=== PATIENT | male | born 1990 | race Asian ===

== ENCOUNTER 2020-04-08 21:08 | Inpatient (IN) | payer SELFPAY, OTHER ==
[~2020-04-08] VITALS: Ht 175.3 cm; Wt 192.3 kg
[~2020-04-08 21:08] MED LIST: NO MEDICATIONS
[2020-04-08] MEDS ORDERED: acetaminophen 325mg tablet PO ONE (21:30)
[2020-04-08] MEDS ORDERED: ondansetron/PF 4mg/2ml inj IV ONE (21:35)
[2020-04-08 21:39] LABS: BASOPHILS # (AUTO) 0.1 X10'3 (0-0.2); BASOPHILS % (AUTO) 0.3 % (0-1); EOSINOPHILS % (AUTO) 0.2 % (0-6); HEMATOCRIT 47.5 % (42.0-52.0); LYMPHOCYTES # (AUTO) 0.9 X10'3 (1.1-4.8); LYMPHOCYTES % (AUTO) 4.1 % (21-51); MEAN CORPUSCULAR HEMOGLOBIN 28.2 PG (27.0-31.0); MEAN CORPUSCULAR HGB CONC 33.6 g/dL (33.0-36.5); MEAN CORPUSCULAR VOLUME 83.9 FL (78-98); MEAN PLATELET VOLUME 8.2 FL (7.4-10.4); MONOCYTES # (AUTO) 1.2 X10'3 (0-0.9); MONOCYTES % (AUTO) 5.7 % (2-12); NEUTROPHILS # (AUTO) 19.3 X10'3 (1.8-7.7); NEUTROPHILS % (AUTO) 89.7 % (42-75); PLATELET COUNT 221 X10'3 (140-440); RED BLOOD COUNT 5.66 X10'6 (4.70-6.10); RED CELL DISTRIBUTION WIDTH 14.5 % (11.5-14.5); WHITE BLOOD COUNT 21.5 X10'3 (4.5-11.0)
[2020-04-08 22:01] LABS: ALANINE AMINOTRANSFERASE 154 U/L (12-78); ALKALINE PHOSPHATASE 81 IU/L (46-116); ANION GAP 12 (8-16); ASPARTATE AMINO TRANSFERASE 65 U/L (10-37); BILIRUBIN,TOTAL 0.9 MG/DL (0.1-1.0); BLOOD UREA NITROGEN 8 MG/DL (7-18); CALCIUM 9.3 MG/DL (8.5-10.1); CHLORIDE 97 MMOL/L (99-107); CREATININE 1.15 MG/DL (0.60-1.10); GLUCOSE 115 MG/DL (70-104); POTASSIUM 3.2 MMOL/L (3.5-5.1); SODIUM 132 MMOL/L (135-145); TOTAL CARBON DIOXIDE 23.5 MMOL/L (24-32); TOTAL PROTEIN 8.2 G/DL (6.4-8.2); eGFR 75 ML/MIN
[2020-04-08] MEDS ORDERED: normal saline 1000ml 1,000 ML IV ONE ×2 (22:40→22:50)
[2020-04-08] MEDS ORDERED: proCHLORperazine 10 MG/2 ml inj IV ONE (22:50)
[2020-04-08] MEDS ORDERED: CefTRIAXone 2gm/D5W 50ml BAG 50 ML IV ONE (22:55)
[2020-04-08 23:02] LABS: CLARITY,URINE CLEAR (Clear); COLOR,URINE YELLOW (Yellow); GLUCOSE, URINE NEGATIVE (Neg); KETONES,URINE NEGATIVE (Neg); LEUKOCYTE ESTERASE ,URINE NEGATIVE (Neg); NITRITES, URINE NEGATIVE (Neg); OCCULT BLOOD,URINE MODERATE (Neg); PROTEIN,URINE NEGATIVE (Neg); UROBILINOGEN,URINE 0.2 E.U/dL (0.2-1.0)
[2020-04-08 23:11] LABS: UA COLLECTION TYPE CLN CATCH MIDSTREAM
[2020-04-08 23:12] LABS: BACTERIA,URINE NONE SEEN /HPF (Neg); RBC,URINE 0-2 /HPF (0-2); SQUAMOUS EPITHELIAL CELL,UR FEW /LPF (FEW); WBC,URINE NONE SEEN /HPF (0-4)
[2020-04-09] MEDS ORDERED: iohexol 300mg/ml 100ml inj. ONE (00:09)
[2020-04-09] MEDS ORDERED: iohexol 300 MG/1 ML 50ml polymer ONE (00:09)
[2020-04-09] MEDS ORDERED: ketorolac tromethamine 15mg/ml inj. IV ONE (01:00)
[2020-04-09] MEDS: VANCOMYCIN IV SCH ×2 (01:03→02:42)
[2020-04-09] MEDS: SODIUM CHLORIDE IV SCH ×2 (01:03→02:42)
[2020-04-09] MEDS ORDERED: potassium Cl 20 mEq SR tablet PO STA (01:11)
[2020-04-09 01:43] LABS: MAGNESIUM 1.4 MG/DL (1.5-2.4)
[2020-04-09 01:44] LABS: URINE AMPHETAMINE SCREEN NEGATIVE (Neg); URINE BARBITUATE SCREEN NEGATIVE (Neg); URINE BENZODIAZEPINES SCREEN NEGATIVE (Neg); URINE CANNABINOID SCREEN NEGATIVE (Neg); URINE COCAINE SCREEN NEGATIVE (Neg); URINE METHADONE SCREEN NEGATIVE (Neg); URINE OPIATE SCREEN NEGATIVE (Neg); URINE PHENCYCLIDINE SCREEN NEGATIVE (Neg)
[2020-04-09] MEDS ORDERED: magnesium 2GM in 50ml NS 50 ML IV ONE (01:50)
[2020-04-09] MEDS ORDERED: normal saline 1000ml 1,000 ML IV ONE (01:55)
[2020-04-09] MEDS ORDERED: acetaminophen 325mg tablet PO PRN (02:05)
[2020-04-09] MEDS ORDERED: potassium CL 10mEq/100ml bag 100 ML IV PRN ×2 (02:05)
[2020-04-09] MEDS ORDERED: magnesium 2GM in 50ml NS 50 ML IV PRN (02:05)
[2020-04-09] MEDS ORDERED: mag hydrox/Alum hydrox/simeth 30ml oral suspension PO PRN (02:05)
[2020-04-09] MEDS ORDERED: potassium Cl 20 mEq SR tablet PO PRN (02:05)
[2020-04-09] MEDS ORDERED: magnesium 4gm in 100ml NS 100 ML IV PRN (02:05)
[2020-04-09] MEDS ORDERED: magnesium hydroxide 30ml (MOM) UD suspension PO PRN (02:05)
[2020-04-09] MEDS ORDERED: ondansetron/PF 4mg/2ml inj IV PRN (02:05)
[2020-04-09 04:30] VITALS: BP 116/85
--- NOTE | 2020-04-09 04:30 | NUR ---
RECEIVED PATIENT IN STABLE CONDITION WITH ALL BELONGINGS FROM ER INTO ROOM 4016 AND ASSUMED PATIENT CARE.
--- NOTE | 2020-04-09 05:12 | NUR ---
PAGER ID: [phone] MESSAGE: Moni [id number] Robles [phone]. did you want iv antibiotics ordered? also can he get Tylenol for headache. thank you.
--- NOTE | 2020-04-09 06:10 | NUR ---
received report from kendra day
--- NOTE | 2020-04-09 06:14 | NUR ---
REPORT GIVEN TO ANGEL CHRISTINE
[2020-04-09] MEDS: magnesium Cl slow-release 64mg tablet PO PRN ×2 (07:11→11:34)
[2020-04-09] MEDS: potassium Cl 20 mEq SR tablet PO PRN ×3 (07:12→17:16)
[2020-04-09] MEDS: acetaminophen 325mg tablet PO PRN ×2 (07:12→23:04)
[2020-04-09] MEDS: CefTRIAXone/D5W-Rocephin 1gm 50 ML IV SCH (07:13)
[2020-04-09] MEDS: normal saline 1000ml 1,000 ML IV SCH ×3 (07:19→23:05)
[2020-04-09] MEDS: K and/or MAG REPLACEMENT MC SCH ×2 (07:20→19:03)
[2020-04-09] MEDS ORDERED: clindamycin 600mg/D5W 50ml 50 ML IV SCH (08:00)
[2020-04-09] MEDS ORDERED: VANCOMYCIN 1,500MG inj. 1,500 MG in normal saline 500ml IV soln 500 ML IV SCH (08:00)
[2020-04-09 09:21] LABS: BASOPHILS # (AUTO) 0.1 X10'3 (0-0.2); BASOPHILS % (AUTO) 0.4 % (0-1); EOSINOPHILS # (AUTO) 0.1 X10'3 (0-0.9); EOSINOPHILS % (AUTO) 0.3 % (0-6); HEMATOCRIT 41.3 % (42.0-52.0); HEMOGLOBIN 13.9 g/dl (14.0-17.9); LYMPHOCYTES # (AUTO) 1.1 X10'3 (1.1-4.8); LYMPHOCYTES % (AUTO) 6.2 % (21-51); MEAN CORPUSCULAR HEMOGLOBIN 28.4 PG (27.0-31.0); MEAN CORPUSCULAR HGB CONC 33.8 g/dL (33.0-36.5); MEAN CORPUSCULAR VOLUME 84.1 FL (78-98); MEAN PLATELET VOLUME 7.6 FL (7.4-10.4); MONOCYTES # (AUTO) 0.7 X10'3 (0-0.9); MONOCYTES % (AUTO) 3.9 % (2-12); NEUTROPHILS # (AUTO) 16.2 X10'3 (1.8-7.7); NEUTROPHILS % (AUTO) 89.2 % (42-75); PLATELET COUNT 204 X10'3 (140-440); RED BLOOD COUNT 4.91 X10'6 (4.70-6.10); RED CELL DISTRIBUTION WIDTH 14.4 % (11.5-14.5); WHITE BLOOD COUNT 18.2 X10'3 (4.5-11.0)
[2020-04-09] MEDS: vancomycin/NS 1 GM ADD-VANTAGE 250 ML IV SCH ×2 (09:42→17:35)
[2020-04-09 10:00] VITALS: BP 146/67
[2020-04-09 18:00] VITALS: BP 156/78
--- NOTE | 2020-04-09 18:03 | NUR ---
gave report to kendra matias
--- NOTE | 2020-04-09 18:17 | NUR ---
Patient in room [facility] 4016. I have received report from Mae CHRISTINE and had the opportunity to ask questions and assume patient care.
[2020-04-09] MEDS: lactobacillus rhamnosus 10,000 MMU CELLS/CAPSULE PO SCH (19:02)
[2020-04-09] MEDS ORDERED: enoxaparin 40mg/0.4ml syringe SUBCUT SCH (20:00)
[2020-04-09 22:00] VITALS: BP 166/84
[2020-04-10] MEDS ORDERED: VANCOMYCIN LEVEL IV ONE (01:30)
[2020-04-10 01:47] LABS: BASOPHILS % (AUTO) 0.2 % (0-1); EOSINOPHILS # (AUTO) 0.1 X10'3 (0-0.9); EOSINOPHILS % (AUTO) 0.4 % (0-6); HEMATOCRIT 40.1 % (42.0-52.0); HEMOGLOBIN 13.7 g/dl (14.0-17.9); LYMPHOCYTES # (AUTO) 1.9 X10'3 (1.1-4.8); LYMPHOCYTES % (AUTO) 13.8 % (21-51); MEAN CORPUSCULAR HEMOGLOBIN 28.9 PG (27.0-31.0); MEAN CORPUSCULAR HGB CONC 34.1 g/dL (33.0-36.5); MEAN CORPUSCULAR VOLUME 84.6 FL (78-98); MEAN PLATELET VOLUME 7.9 FL (7.4-10.4); MONOCYTES # (AUTO) 0.7 X10'3 (0-0.9); MONOCYTES % (AUTO) 5.1 % (2-12); NEUTROPHILS # (AUTO) 11.1 X10'3 (1.8-7.7); NEUTROPHILS % (AUTO) 80.5 % (42-75); PLATELET COUNT 199 X10'3 (140-440); RED BLOOD COUNT 4.74 X10'6 (4.70-6.10); RED CELL DISTRIBUTION WIDTH 14.7 % (11.5-14.5); WHITE BLOOD COUNT 13.8 X10'3 (4.5-11.0)
[2020-04-10] MEDS: vancomycin/NS 1 GM ADD-VANTAGE 250 ML IV SCH ×3 (02:04→14:00)
[2020-04-10 02:42] LABS: ALANINE AMINOTRANSFERASE 96 U/L (12-78); ALBUMIN 3.2 G/DL (3.4-5.0); ALBUMIN/GLOBULIN RATIO 0.8 (1.1-1.5); ALKALINE PHOSPHATASE 59 IU/L (46-116); ANION GAP 7 (8-16); ASPARTATE AMINO TRANSFERASE 34 U/L (10-37); BILIRUBIN,TOTAL 0.4 MG/DL (0.1-1.0); BLOOD UREA NITROGEN 7 MG/DL (7-18); BUN/CREATININE RATIO 6.7 (5.4-32.0); CALCIUM 8.3 MG/DL (8.5-10.1); CHLORIDE 106 MMOL/L (99-107); CREATININE 1.04 MG/DL (0.60-1.10); GLUCOSE 115 MG/DL (70-104); MAGNESIUM 1.9 MG/DL (1.5-2.4); POTASSIUM 3.3 MMOL/L (3.5-5.1); SODIUM 139 MMOL/L (135-145); TOTAL PROTEIN 7.1 G/DL (6.4-8.2); VANCOMYCIN,TROUGH 3.8 UG/ML (6.0-14.0); eGFR 84 ML/MIN
[2020-04-10] MEDS: normal saline 1000ml 1,000 ML IV SCH (05:17)
[2020-04-10] MEDS: HYDROcodone/acetaminophen 5mg/325mg tablet PO PRN ×2 (05:17→11:56)
[2020-04-10] MEDS: potassium Cl 20 mEq SR tablet PO PRN ×3 (05:17→14:17)
[2020-04-10 06:00] VITALS: BP 131/63
--- NOTE | 2020-04-10 06:05 | NUR ---
received report from kendra matias
--- NOTE | 2020-04-10 06:11 | NUR ---
Problems reprioritized. Patient report given, questions answered & plan of care reviewed with Mae CHRISTINE.
[2020-04-10] MEDS: CefTRIAXone/D5W-Rocephin 1gm 50 ML IV SCH (07:01)
[2020-04-10] MEDS: K and/or MAG REPLACEMENT MC SCH (07:42)
[2020-04-10 10:00] VITALS: BP 141/72
[2020-04-10] MEDS: lactobacillus rhamnosus 10,000 MMU CELLS/CAPSULE PO SCH (10:09)
[2020-04-10] MEDS ORDERED: CIPR-259 PO (12:00)
[2020-04-10] MEDS ORDERED: DOXY-243 PO (12:00)
[2020-04-10] MEDS ORDERED: OMEP20CA15 PO (12:00)
--- NOTE | 2020-04-10 14:32 | NUR ---
pt d/c with instructions, understanding of instructions and w/all belongings including wallet and consult w/financial reporting accountant walking out accompanied by nursing staff to private vehicle to go home and f/u w/pcp
[2020-04-11] MEDS ORDERED: VANCOMYCIN LEVEL IV ONE (01:30)
== END 2020-04-10 14:00 | disposition home or self-care (01) | DRG 603 ==
LOC: ER 21:10 → UNDOADMIN 04-09 02:02 → ED HOLD 04-09 02:02 → ORTHO 4S 04-09 04:33 → ED HOLD 04-09 04:33 → ORTHO 4S 04-09 11:02
PROVIDERS: ADMIT Family Medicine; ATTEND Internal Medicine
DX: L03.116 Cellulitis of left lower limb (principal); R00.0 Tachycardia, unspecified; H60.93 Unspecified otitis externa, bilateral; H60.60 Unspecified chronic otitis externa, unspecified ear; G43.909 Migraine, unspecified, not intractable, without status migrainosus; Z20.828 Contact with and (suspected) exposure to other viral communicable diseases; Z87.891 Personal history of nicotine dependence
CPT/HCPCS: 36415; 70450; 71045; 73701; 74177; 80053; 80202; 80305; 81001; 83605; 83735; 84145; 84443; 85025; 87040; 87081; 87635; 94660; 94760; 96365; 96375; 99285; C9803; G0378; J0696; J0780; J1650; J1885; J2405; J3370; J3475; J7030; Q9967

== ENCOUNTER 2023-12-28 16:37 | Inpatient (IN) | payer BC, MEDICAID ==
[~2023-12-28] VITALS: Ht 175.3 cm; Wt 201.4 kg
[~2023-12-28 16:37] MED LIST changes: -NO MEDICATIONS; +OMEP20CA15 PO
[2023-12-28] MEDS: LIDOcaine 1% W/epiNEPHrine 1:100,000 20ml vial SQ ONE (17:20)
[2023-12-28] MEDS: cephalexin 250mg capsule PO ONE (17:30)
[2023-12-28] MEDS ORDERED: CEPH-585 PO (17:54)
[2023-12-28] MEDS: labetalol 100mg tablet PO ONE (18:06)
[2023-12-28 18:28] LABS: BASOPHILS # (AUTO) 0.1 X10'3 (0-0.2); BASOPHILS % (AUTO) 0.7 % (0-1); EOSINOPHILS # (AUTO) 0.6 X10'3 (0-0.9); EOSINOPHILS % (AUTO) 4.2 % (0-6); HEMATOCRIT 45.8 % (42.0-52.0); HEMOGLOBIN 15.7 g/dl (14.0-17.9); LYMPHOCYTES # (AUTO) 3.8 X10'3 (1.1-4.8); LYMPHOCYTES % (AUTO) 27.2 % (21-51); MEAN CORPUSCULAR HEMOGLOBIN 28.3 PG (27.0-31.0); MEAN CORPUSCULAR HGB CONC 34.3 g/dL (33.0-36.5); MEAN CORPUSCULAR VOLUME 82.5 FL (78-98); MEAN PLATELET VOLUME 8.9 FL (7.4-10.4); MONOCYTES # (AUTO) 0.8 X10'3 (0-0.9); MONOCYTES % (AUTO) 5.5 % (2-12); NEUTROPHILS # (AUTO) 8.7 X10'3 (1.8-7.7); NEUTROPHILS % (AUTO) 62.4 % (42-75); PLATELET COUNT 269 X10'3 (140-440); RED BLOOD COUNT 5.55 X10'6 (4.70-6.10); RED CELL DISTRIBUTION WIDTH 15.8 % (11.5-14.5); WHITE BLOOD COUNT 13.9 X10'3 (4.5-11.0)
[2023-12-28] MEDS ORDERED: IRBE300T26 PO (18:47)
[2023-12-28] MEDS ORDERED: HYDR25TA5 PO (18:47)
[2023-12-28 18:50] LABS: ALBUMIN 3.9 G/DL (3.4-5.0); ANION GAP 14 (8-16); BLOOD UREA NITROGEN 12 MG/DL (7-18); BUN/CREATININE RATIO 9.9 (10.0-20.0); CHLORIDE 103 MMOL/L (99-107); CREATININE 1.21 MG/DL (0.60-1.10); GLUCOSE 106 MG/DL (70-104); SODIUM 141 MMOL/L (135-145); TOTAL CARBON DIOXIDE 23.9 MMOL/L (24-32); eCRCL 87 ML/MIN; eGFR 69 ML/MIN
[2023-12-28 18:55] LABS: POTASSIUM 2.7 MMOL/L (3.5-5.1)
[2023-12-28] MEDS: hydrALAZINE 20mg/ml inj. IV ONE (19:07)
[2023-12-28] MEDS ORDERED: magnesium sulf-water 2g/50mL 50 ML IV PRN ×2 (19:15→20:45)
[2023-12-28] MEDS ORDERED: potassium Cl 40MEQ/1/2NS 520ml 520 ML IV PRN ×2 (19:15→20:45)
[2023-12-28] MEDS ORDERED: magnesium sulf-water 4G/100mL 100 ML IV PRN ×2 (19:15→20:45)
[2023-12-28] MEDS ORDERED: magnesium Cl slow-release 64mg tablet PO PRN ×2 (19:15→20:45)
[2023-12-28 19:37] LABS: MAGNESIUM 1.8 MG/DL (1.5-2.4); PRO BRAIN NATRIURETIC PEPTIDE 352 PG/ML (0-125)
[2023-12-28] MEDS: K and/or MAG REPLACEMENT MC SCH (20:00)
[2023-12-28] MEDS: potassium Cl 20 mEq SR tablet PO PRN (20:08)
[2023-12-28] MEDS ORDERED: metoclopramide 5 mg/ml inj IV PRN (20:45)
[2023-12-28] MEDS ORDERED: magnesium hydroxide 30ml (MOM) UD suspension PO PRN (20:45)
[2023-12-28] MEDS ORDERED: mag hydrox/Alum hydrox/simeth 30ml oral suspension PO PRN (20:45)
[2023-12-28] MEDS ORDERED: potassium Cl 20 mEq SR tablet PO PRN ×2 (20:45)
[2023-12-28] MEDS ORDERED: ondansetron/PF 4mg/2ml inj IV PRN (20:45)
[2023-12-28] MEDS ORDERED: morphine 2 MG/ML inj. syringe IV PRN ×2 (20:45)
[2023-12-28] MEDS ORDERED: bisacodyl 10mg suppository rectal RC PRN (20:45)
[2023-12-28] MEDS ORDERED: acetaminophen 325mg tablet PO PRN (20:45)
[2023-12-28] MEDS ORDERED: hydrALAZINE 20mg/ml inj. IV PRN (20:55)
[2023-12-28] MEDS ORDERED: temazepam 15mg capsule PO PRN (21:00)
[2023-12-28 21:36] LABS: MAGNESIUM 1.8 MG/DL (1.5-2.4)
[2023-12-28 21:39] LABS: POTASSIUM 2.7 MMOL/L (3.5-5.1)
[2023-12-28 23:20] VITALS: BP 152/80; PULSE 88; RESP 12; TEMP 97.2; O2SAT 97
[2023-12-29] VITALS (14 sets, daily range): BP systolic 154–228; BP diastolic 86–107; PULSE 76–98; RESP 12–33; TEMP 97.2–98.1; O2SAT 93–98
[2023-12-29] MEDS: acetaminophen 325mg tablet PO PRN (02:42)
[2023-12-29 07:29] LABS: BASOPHILS % (AUTO) 0.4 % (0-1); EOSINOPHILS # (AUTO) 0.2 X10'3 (0-0.9); EOSINOPHILS % (AUTO) 1.4 % (0-6); HEMATOCRIT 40.5 % (42.0-52.0); HEMOGLOBIN 13.6 g/dl (14.0-17.9); LYMPHOCYTES # (AUTO) 2.6 X10'3 (1.1-4.8); LYMPHOCYTES % (AUTO) 19.4 % (21-51); MEAN CORPUSCULAR HEMOGLOBIN 27.7 PG (27.0-31.0); MEAN CORPUSCULAR HGB CONC 33.5 g/dL (33.0-36.5); MEAN CORPUSCULAR VOLUME 82.7 FL (78-98); MEAN PLATELET VOLUME 8.7 FL (7.4-10.4); MONOCYTES # (AUTO) 0.7 X10'3 (0-0.9); MONOCYTES % (AUTO) 4.9 % (2-12); NEUTROPHILS # (AUTO) 9.9 X10'3 (1.8-7.7); NEUTROPHILS % (AUTO) 73.9 % (42-75); PLATELET COUNT 219 X10'3 (140-440); RED BLOOD COUNT 4.89 X10'6 (4.70-6.10); RED CELL DISTRIBUTION WIDTH 15.9 % (11.5-14.5); WHITE BLOOD COUNT 13.4 X10'3 (4.5-11.0)
[2023-12-29 07:34] LABS: ALANINE AMINOTRANSFERASE 101 U/L (12-78); ALBUMIN 3.3 G/DL (3.4-5.0); ALBUMIN/GLOBULIN RATIO 0.9 (1.1-1.5); ALKALINE PHOSPHATASE 70 IU/L (46-116); ANION GAP 8 (8-16); ASPARTATE AMINO TRANSFERASE 49 U/L (10-37); BILIRUBIN,TOTAL 0.9 MG/DL (0.1-1.0); BLOOD UREA NITROGEN 16 MG/DL (7-18); CALCIUM 9.1 MG/DL (8.5-10.1); CHLORIDE 105 MMOL/L (99-107); CREATININE 0.94 MG/DL (0.60-1.10); GLUCOSE 100 MG/DL (70-104); HEMOGLOBIN A1C 5.5 % (4.5-6.2); MAGNESIUM 2.3 MG/DL (1.5-2.4); SODIUM 141 MMOL/L (135-145); TOTAL CARBON DIOXIDE 27.9 MMOL/L (24-32); eCRCL 112 ML/MIN; eGFR > 90 ML/MIN
[2023-12-29 07:38] LABS: POTASSIUM 2.7 MMOL/L (3.5-5.1)
[2023-12-29 08:13] LABS: CHOL/HDL RATIO 7.7 (0.00-4.99); CHOLESTEROL 255 MG/DL (0-200); HDL CHOLESTEROL 33 MG/DL (35-60); LDL CHOLESTEROL 178 MG/DL (50-100); TRIGLYCERIDES 153 MG/DL (20-135)
[2023-12-29] MEDS: ibuprofen 200mg tablet PO PRN (08:16)
[2023-12-29] MEDS: K and/or MAG REPLACEMENT MC SCH (08:54)
[2023-12-29] MEDS: heparin, porcine 5000 units/ml vial SQ SCH (09:52)
[2023-12-29] MEDS: lisinopril 5mg tablet PO SCH (09:53)
[2023-12-29] MEDS: amLODIPine 5mg tablet PO SCH (09:53)
[2023-12-29] MEDS: ketoconazole 2% cream 15gm TP SCH (09:54)
[2023-12-29] MEDS: CefTRIAXone/D5W-Rocephin 1gm 50 ML IV SCH (09:54)
[2023-12-29] MEDS: furosemide 40mg/4ml inj IV ONE (10:31)
[2023-12-29] MEDS: labetalol 100mg tablet PO SCH (12:30)
[2023-12-29 12:36] LABS: URINE AMPHETAMINE SCREEN NEGATIVE (Neg); URINE BARBITUATE SCREEN NEGATIVE (Neg); URINE BENZODIAZEPINES SCREEN NEGATIVE (Neg); URINE METHADONE SCREEN NEGATIVE (Neg)
[2023-12-29 12:37] LABS: URINE CANNABINOID SCREEN NEGATIVE (Neg); URINE COCAINE SCREEN NEGATIVE (Neg); URINE OPIATE SCREEN NEGATIVE (Neg); URINE PHENCYCLIDINE SCREEN NEGATIVE (Neg)
[2023-12-29] MEDS: furosemide 40mg/4ml inj IV SCH (19:48)
[2023-12-29] MEDS: potassium Cl 20 mEq SR tablet PO PRN (22:18)
[2023-12-30] VITALS (13 sets, daily range): BP systolic 121–165; BP diastolic 64–108; PULSE 66–92; RESP 14–27; TEMP 97.2–98.2; O2SAT 94–98
[2023-12-30 06:49] LABS: BASOPHILS % (AUTO) 0.4 % (0-1); EOSINOPHILS # (AUTO) 0.5 X10'3 (0-0.9); EOSINOPHILS % (AUTO) 4.2 % (0-6); HEMATOCRIT 39.6 % (42.0-52.0); HEMOGLOBIN 13.1 g/dl (14.0-17.9); LYMPHOCYTES # (AUTO) 3.1 X10'3 (1.1-4.8); LYMPHOCYTES % (AUTO) 25.4 % (21-51); MEAN CORPUSCULAR HEMOGLOBIN 27.8 PG (27.0-31.0); MEAN CORPUSCULAR HGB CONC 33.2 g/dL (33.0-36.5); MEAN CORPUSCULAR VOLUME 83.6 FL (78-98); MEAN PLATELET VOLUME 8.5 FL (7.4-10.4); MONOCYTES # (AUTO) 0.7 X10'3 (0-0.9); MONOCYTES % (AUTO) 5.8 % (2-12); NEUTROPHILS # (AUTO) 7.9 X10'3 (1.8-7.7); NEUTROPHILS % (AUTO) 64.2 % (42-75); PLATELET COUNT 223 X10'3 (140-440); RED BLOOD COUNT 4.74 X10'6 (4.70-6.10); RED CELL DISTRIBUTION WIDTH 15.5 % (11.5-14.5); WHITE BLOOD COUNT 12.3 X10'3 (4.5-11.0)
[2023-12-30 07:12] LABS: ALANINE AMINOTRANSFERASE 99 U/L (12-78); ALBUMIN 3.4 G/DL (3.4-5.0); ALBUMIN/GLOBULIN RATIO 0.9 (1.1-1.5); ALKALINE PHOSPHATASE 69 IU/L (46-116); ANION GAP 10 (8-16); ASPARTATE AMINO TRANSFERASE 43 U/L (10-37); BILIRUBIN,TOTAL 0.8 MG/DL (0.1-1.0); BLOOD UREA NITROGEN 22 MG/DL (7-18); BUN/CREATININE RATIO 20.4 (10.0-20.0); CALCIUM 9.3 MG/DL (8.5-10.1); CHLORIDE 104 MMOL/L (99-107); CREATININE 1.08 MG/DL (0.60-1.10); GLUCOSE 90 MG/DL (70-104); SODIUM 140 MMOL/L (135-145); TOTAL CARBON DIOXIDE 26.2 MMOL/L (24-32); TOTAL PROTEIN 7.2 G/DL (6.4-8.2); eCRCL 97 ML/MIN; eGFR 79 ML/MIN
[2023-12-30] MEDS: lisinopril 20mg tablet PO SCH (08:26)
[2023-12-30] MEDS ORDERED: scopolamine 1MG/72H patch 1 PATCH PATCH.TD.3 TD SCH (19:45)
[2023-12-31 02:00] VITALS: BP 125/69; PULSE 89; RESP 15; TEMP 97.5; O2SAT 96
[2023-12-31 06:00] VITALS: BP 152/85; PULSE 90; RESP 15; TEMP 97.7; O2SAT 98
[2023-12-31 07:26] LABS: BASOPHILS # (AUTO) 0.1 X10'3 (0-0.2); BASOPHILS % (AUTO) 0.7 % (0-1); EOSINOPHILS # (AUTO) 0.5 X10'3 (0-0.9); EOSINOPHILS % (AUTO) 3.9 % (0-6); HEMATOCRIT 42.1 % (42.0-52.0); HEMOGLOBIN 13.9 g/dl (14.0-17.9); LYMPHOCYTES # (AUTO) 2.6 X10'3 (1.1-4.8); LYMPHOCYTES % (AUTO) 19.9 % (21-51); MEAN CORPUSCULAR HEMOGLOBIN 28.1 PG (27.0-31.0); MEAN CORPUSCULAR HGB CONC 33.1 g/dL (33.0-36.5); MEAN PLATELET VOLUME 8.3 FL (7.4-10.4); MONOCYTES # (AUTO) 0.7 X10'3 (0-0.9); MONOCYTES % (AUTO) 5.2 % (2-12); NEUTROPHILS % (AUTO) 70.3 % (42-75); PLATELET COUNT 249 X10'3 (140-440); RED BLOOD COUNT 4.96 X10'6 (4.70-6.10); RED CELL DISTRIBUTION WIDTH 15.8 % (11.5-14.5); WHITE BLOOD COUNT 12.9 X10'3 (4.5-11.0)
[2023-12-31 07:54] LABS: ALANINE AMINOTRANSFERASE 89 U/L (12-78); ALBUMIN 3.6 G/DL (3.4-5.0); ALBUMIN/GLOBULIN RATIO 0.9 (1.1-1.5); ALKALINE PHOSPHATASE 74 IU/L (46-116); ANION GAP 8 (8-16); ASPARTATE AMINO TRANSFERASE 37 U/L (10-37); BILIRUBIN,TOTAL 0.8 MG/DL (0.1-1.0); BLOOD UREA NITROGEN 17 MG/DL (7-18); BUN/CREATININE RATIO 15.6 (10.0-20.0); CALCIUM 8.9 MG/DL (8.5-10.1); CHLORIDE 105 MMOL/L (99-107); CREATININE 1.09 MG/DL (0.60-1.10); GLUCOSE 85 MG/DL (70-104); MAGNESIUM 1.9 MG/DL (1.5-2.4); POTASSIUM 3.2 MMOL/L (3.5-5.1); SODIUM 141 MMOL/L (135-145); TOTAL CARBON DIOXIDE 28.5 MMOL/L (24-32); TOTAL PROTEIN 7.8 G/DL (6.4-8.2); eCRCL 96 ML/MIN; eGFR 78 ML/MIN
[2023-12-31 08:00] VITALS: RESP 15; O2SAT 98
[2023-12-31] MEDS: lisinopril 20mg tablet PO SCH (08:00)
[2023-12-31 08:30] VITALS: RESP 17; O2SAT 96
[2023-12-31] MEDS: furosemide 20MG tablet PO SCH (08:42)
[2023-12-31] MEDS: atorvastatin 20mg tablet PO SCH (08:53)
[2023-12-31 10:00] VITALS: BP 153/77; PULSE 90; RESP 17; TEMP 98.8; O2SAT 96
[2023-12-31] MEDS ORDERED: LISI20TA28 PO ×2 (10:10→20:10)
[2023-12-31] MEDS ORDERED: ATOR20TA66 PO (10:10)
[2023-12-31] MEDS ORDERED: FURO-150 PO (10:10)
[2023-12-31] MEDS ORDERED: LABE100T8 PO (10:10)
[2023-12-31] MEDS ORDERED: CEPH250T PO (12:56)
[2024-01-01] MEDS ORDERED: lisinopril 20mg tablet PO SCH (08:00)
== END 2023-12-31 13:53 | disposition home or self-care (01) | DRG 281 ==
LOC: ER 16:37 → PCU 3S 20:48
PROVIDERS: ADMIT Internal Medicine Critical Care Medicine; ATTEND Internal Medicine
PROC: 0HQKXZZ Repair Right Lower Leg Skin, External Approach (ICD-10-PCS; principal; 2023-12-28)
DX: I16.1 Hypertensive emergency (principal); Z68.44 Body mass index [BMI] 60.0-69.9, adult; I21.A1 Myocardial infarction type 2; E66.8 Other obesity; G47.33 Obstructive sleep apnea (adult) (pediatric); S81.811A Laceration without foreign body, right lower leg, initial encounter; E87.6 Hypokalemia; G43.909 Migraine, unspecified, not intractable, without status migrainosus; I10 Essential (primary) hypertension; W18.39XA Other fall on same level, initial encounter; Y93.89 Activity, other specified; Y92.89 Other specified places as the place of occurrence of the external cause; Y99.8 Other external cause status
CPT/HCPCS: 36415; 71045; 80048; 80053; 80061; 80305; 82043; 82088; 83036; 83735; 83880; 84132; 84145; 84244; 84443; 84484; 85025; 87081; 93005; 93306; 93975; 94660; 94760; 96374; 97116; 97161; 97530; 99291; A6258; A6446; A6449; G0378; J0360; J0696; J1644; J1940